=== PATIENT | male | born 2000 | race Caucasian/White ===

== ENCOUNTER 2020-02-03 17:21 | Emergency (ER) | payer MEDICAID ==
[~2020-02-03] VITALS: Ht 188 cm; Wt 97.5 kg
[2020-02-03 17:30] VITALS: Ht 188 cm; Wt 97.5 kg
[2020-02-03 19:05] VITALS: BP 122/72
== END 2020-02-03 19:05 | disposition home or self-care (01) ==
LOC: ED 17:21
DX: L02.214 Cutaneous abscess of groin (principal)
CPT/HCPCS: 82962; J2001

== ENCOUNTER 2020-02-06 21:23 | Emergency (ER) | payer MEDICAID ==
[~2020-02-06] VITALS: Ht 188 cm; Wt 98.4 kg
[2020-02-06 21:36] VITALS: Ht 188 cm; Wt 98.4 kg
[2020-02-06 23:38] VITALS: BP 114/60
== END 2020-02-06 23:38 | disposition home or self-care (01) ==
LOC: ED 21:23
DX: L02.214 Cutaneous abscess of groin (principal); Z48.00 Encounter for change or removal of nonsurgical wound dressing